=== PATIENT | male | born 1970 | race Caucasian/White ===

== ENCOUNTER 2016-08-26 19:58 | Emergency (ER) | payer MEDICAID, OTHER ==
[~2016-08-26] VITALS: Ht 167.6 cm; Wt 65.5 kg
[2016-08-26 20:01] VITALS: Ht 167.6 cm; Wt 65.5 kg
[2016-08-26] MEDS ORDERED: ONDANSETRON 4 MG INJ IV STA (20:47)
[2016-08-26] MEDS ORDERED: FAMOTIDINE 20 MG INJ IV STA (20:47)
[2016-08-26] MEDS ORDERED: SOD CHLORIDE 0.9% 1,000 ML IV STA (20:47)
[2016-08-26] MEDS ORDERED: LIDOCAINE/MYLANTA 40 ML BTL PO ONE (21:00)
--- NOTE | 2016-08-26 21:27 | RADRPT ---
PROCEDURE: Limited US Abdomen. CLINICAL INDICATION: 46-year-old male with abdominal pain. TECHNIQUE: Multiple real-time images were acquired of the patient's abdomen and retroperitoneum ut ilizing a high resolution transducer. COMPARISON: None FINDINGS: The of the pancreas is obscured by bowel gas. The liver measures 13.6 cm in length. The gallbladder is unremarkable. The gallbladder wall measur es 2 mm. There is no evidence of cholelithiasis. The extrahepatic common bile duct measured 2.2 mm. The right kidney measures 5.6 cm in length and is unremarkable. The left kidney and spleen are not e valuated on this study. IMPRESSION: 1. The liver and gallbladder are unremarkable. The common bile duct is normal. 2. The pancreas is obscured by bowel gas. RPTAT:AAJJ Physician Sandra Date Time Electronically viewed and signed by Physician Sandra on 08/26/2016 21:26 [email or web address]/
[2016-08-26 21:30] LABS: ADD SCAN DIFF NO
[2016-08-26 21:31] LABS: BASOPHILS % 0.1 % (0.0-2.0); EOSINOPHILS % 0.4 % (0.0-7.0); HEMOGLOBIN 15.7 g/dl (14.0-18.0); LYMPHOCYTES # 1.1 10^3/ul (0.8-2.9); LYMPHOCYTES % 13.6 % (15.0-51.0); MEAN CORPUSCULAR HEMOGLOBIN 30.4 pg (29.0-33.0); MEAN CORPUSCULAR HGB CONC 34.9 g/dl (32.0-37.0); MEAN PLATELET VOLUME 10.5 fl (7.4-10.4); MONOCYTE # 0.4 10^3/ul (0.3-0.9); MONOCYTES % 4.8 % (0.0-11.0); NEUTROPHIL # 6.5 10^3/ul (1.6-7.5); NEUTROPHILS % 80.7 % (39.0-77.0); PLATELET COUNT 182 10^3/UL (140-415); RED BLOOD COUNT 5.17 10^6/ul (4.70-6.10); RED CELL DISTRIBUTION WIDTH 12.1 % (11.5-14.5); WHITE BLOOD COUNT 8.1 10^3/ul (4.8-10.8)
--- NOTE | 2016-08-26 21:35 | ERD ---
ER Documentation Chief Complaint Date/Time DATE: 08/26/16 TIME: 21:29 Chief Complaint abd pain x 4 hrs; with nausea only HPI 46-year-old otherwise healthy male who presents the emergency department for complaints of a 4 hour history of epigastric abdominal pain. Patient states while at work today he began experiencing the epigastric pain which he rates at an intermittent burning 8 out of 10 with radiation to the right back. Patient notes associated nausea but denies any vomiting, other abdominal pain or diarrhea. Patient states he has experienced these symptoms once before 2 years ago but is unaware of what the diagnosis was. Patient denies chest pain or shortness of breath. Patient denies any cardiac history. He denies fever, chills. ROS All systems reviewed and are negative except as per history of present illness. Medications Home Meds Active Scripts Ranitidine Hcl* (Ranitidine Hcl*) 150 Mg Tablet, 150 MG PO HS, #30 TAB Prov:FLORIN CARTWRIGHT PA-C 08/26/16 Famotidine* (Famotidine*) 20 Mg Tablet, 20 MG PO BID, #60 TAB Prov:FLORIN CARTWRIGHT PA-C 08/26/16 Ondansetron (Zofran Odt) 4 Mg Tab.rapdis, 4 MG PO Q6 for 7 Days Prov:FLORIN CARTWRIGHT PA-C 08/26/16 Discontinued Scripts Calcium Carbonate (Tums) 200MG Calcium Chew, 1 TAB PO Q4 for 10 Days, TAB.CHEW Prov:FLORIN CARTWRIGHT PA-C 08/26/16 PMhx/Soc Medical and Surgical Hx: pt denies Medical Hx, pt denies Surgical Hx History of Surgery: No (PT DENIES MEDICAL AND SURGICAL HX.) Hx Alcohol Use: No Hx Substance Use: No Hx Tobacco Use: No Smoking Status: Never smoker Physical Exam Vitals Vital Signs Date Time Temp Pulse Resp B/P Pulse Ox O2 Delivery O2 Flow Rate FiO2 08/26/16 20:01 97.9 80 20 134/80 98 Physical Exam Const: Well-developed, well-nourished, no acute distress Head: Atraumatic Eyes: Normal Conjunctiva ENT: Normal External Ears, Nose and Mouth. Neck: Full range of motion..~ No meningismus. Resp: Clear to auscultation bilaterally Cardio: Regular rate and rhythm, no murmurs Abd: Soft, non tender, non distended. Normal bowel sounds. Negative Truong sign. Negative McBurney point tenderness Skin: No petechiae or rashes Back: No midline or flank tenderness Ext: No cyanosis, or edema Neur: Awake and alert Psych: Normal Mood and Affect Result Diagram: 08/26/16210408/26/162104 Results 24 hrs Laboratory Tests Test 08/26/16 21:05 White Blood Count 8.110^3/ul Red Blood Count 5.1710^6/ul Hemoglobin 15.7g/dl Hematocrit 45.0% Mean Corpuscular Volume 87.0fl Mean Corpuscular Hemoglobin 30.4pg Mean Corpuscular Hemoglobin Concent 34.9g/dl Red Cell Distribution Width 12.1% Platelet Count 83695^3/UL Mean Platelet Volume 10.5fl Neutrophils % 80.7% Lymphocytes % 13.6% Monocytes % 4.8% Eosinophils % 0.4% Basophils % 0.1% Nucleated Red Blood Cells % 0.0/100WBC Neutrophils # 6.510^3/ul Lymphocytes # 1.110^3/ul Monocytes # 0.410^3/ul Eosinophils # 0.010^3/ul Basophils # 0.010^3/ul Nucleated Red Blood Cells # 0.010^3/ul Sodium Level 143mmol/L Potassium Level 4.3mmol/L Chloride Level 106mmol/L Carbon Dioxide Level 26mmol/L Anion Gap 15 Blood Urea Nitrogen 16mg/dl Creatinine 0.85mg/dl Glucose Level 105mg/dl Calcium Level 9.8mg/dl Total Bilirubin 0.5mg/dl Direct Bilirubin 0.00mg/dl Indirect Bilirubin 0.5mg/dl Aspartate Amino Transf (AST/SGOT) 39IU/L Alanine Aminotransferase (ALT/SGPT) 53IU/L Alkaline Phosphatase 55IU/L Total Protein 8.4g/dl Albumin 4.9g/dl Globulin 3.50g/dl Albumin/Globulin Ratio 1.40 Lipase 80U/L Current Medications Medications (Trade) Dose Ordered Sig/Nicolette Route PRN Reason Start Time Stop Time Status Last Admin Dose Admin Sodium Chloride (NS) 1,000 ml @ 1,000 mls/hr Q1H STAT IV 08/26/16 20:47 08/26/16 21:46 DC 08/26/16 21:23 Ondansetron HCl (Zofran Inj) 4 mg ONCE STAT IV 08/26/16 20:47 08/26/16 20:54 DC 08/26/16 21:22 Famotidine (Pepcid Iv) 20 mg ONCE STAT IV 08/26/16 20:47 08/26/16 20:54 DC 08/26/16 21:22 Miscellaneous Medication (Gi Cocktail (2)) 40 ml ONCE ONCE PO 08/26/16 21:00 08/26/16 21:01 DC 08/26/16 21:22 Procedures/MDM This is an otherwise healthy 46-year-old male who presents emergency department for complaints of a 4 hour history of epigastric, burning, abdominal pain. Patient well-appearing upon arrival. Vital signs reviewed. Patient afebrile, normotensive, non-tachycardic and non-hypoxic upon arrival. Physical exam without any evidence of abdominal tenderness to palpation or distention. CBC showed no evidence of systemic infection or severe anemia. CMP showed no evidence of electrolyte abnormalities, severe acidosis, alkalosis , renal failure, or liver disease. Lipase showed no evidence of acute pancreatitis. UA showed no evidence of acute infection or hematuria. History and physical consistent with epigastric pain likely due to gastroesophageal reflux. At this time I have low suspicion for acute coronary syndrome, cholecystitis, pancreatitis, abdominal aortic aneurysm. Patient received fluids, Zofran, Pepcid, and GI cocktail in the emergency department and reports significant improvement of symptoms. Patient to continue antacid medication. Instructed the patient to follow-up with a GI specialist if symptoms continue despite medication regimen. Based on patient's history of present illness and physical examination the decision was made to discharge. The patient was re-evaluated after ED treatment and stabilizing measures, and symptoms have improved. There is no evidence of life threatening injuries or illnesses at this time. On re-examination, patient resting in no distress, stable vital signs, reports feeling better and safe for discharge with outpatient follow up with PMD in 1-2 days. Patient given return precautions. Departure Diagnosis: Primary Impression: Epigastric pain Additional Impression: Nausea FLORIN CARTWRIGHT PA-C Aug 26, 2016 21:35
[2016-08-26 21:58] LABS: ALBUMIN 4.9 g/dl (3.3-4.9); ALBUMIN/GLOBULIN RATIO 1.4; BILIRUBIN,INDIRECT 0.5 mg/dl (0-1.1); BILIRUBIN,TOTAL 0.5 mg/dl (0.2-1.3); CALCIUM 9.8 mg/dl (8.4-10.2); CREATININE 0.85 mg/dl (0.61-1.24); POTASSIUM 4.3 mmol/L (3.5-5.1); TOTAL PROTEIN 8.4 g/dl (6.1-8.1)
[2016-08-26] MEDS ORDERED: CALC200T3 PO (22:15)
[2016-08-26] MEDS ORDERED: ONDA4TAB11 PO (22:15)
[2016-08-26] MEDS ORDERED: RANI150T5 PO (22:15)
[2016-08-26] MEDS ORDERED: FAMO20TA18 PO (22:15)
[2016-08-26 22:37] LABS: ADD UMIC YES; UR AMORPHOUS CRYSTAL MODERATE /HPF (NONE SEEN); UR ASCORBIC ACID 40 mg/dL (NEGATIVE); UR BILIRUBIN (Dip) NEGATIVE (NEGATIVE); UR BLOOD (Dip) NEGATIVE (NEGATIVE); UR CLARITY CLOUDY (CLEAR); UR COLOR AMBER (YELLOW); UR GLUCOSE (Dip) NEGATIVE (NEGATIVE); UR KETONES (Dip) NEGATIVE (NEGATIVE); UR LEUKOCYTE ESTERASE (Dip) NEGATIVE Leu/ul (NEGATIVE); UR NITRITE (Dip) NEGATIVE (NEGATIVE); UR RBC 1 /HPF (0-5); UR SPECIFIC GRAVITY (Dip) 1.018 (1.003-1.030); UR TOTAL PROTEIN (Dip) NEGATIVE (NEGATIVE); UR UROBILINOGEN (Dip) NEGATIVE (NEGATIVE)
[2016-08-26 22:53] VITALS: BP 128/77; PULSE 70; RESP 20; TEMP 98.3
== END 2016-08-26 22:53 | disposition home or self-care (01) ==
LOC: FTE 19:58
DX: R10.13 Epigastric pain (principal); R11.0 Nausea
CPT/HCPCS: 36415; 76705; 80053; 81001; 83690; 85025; 96374; 96375; J2405; J7030; Z7502; Z7610